=== PATIENT | female | born 1975 | race Hispanic/Latino ===

== ENCOUNTER 2021-02-02 10:18 | Emergency (ER) | payer MEDICAID ==
[~2021-02-02] VITALS: Ht 157.5 cm; Wt 77.1 kg
[2021-02-02] VITALS (12 sets, daily range): BP systolic 106–177; BP diastolic 64–81
[2021-02-02] MEDS ORDERED: TETANUS/DIPHTHERIA TOXOID [ADULT] 0.5 ML VIAL IM ONE ×3 (10:19→16:39)
[2021-02-02 10:50] LABS: BASOPHILS % (AUTO) 0.6 % (0.0-5.0); EOSINOPHILS % (AUTO) 3.5 % (0.0-8.0); HEMATOCRIT 43.6 % (36-48); LYMPHOCYTES % (AUTO) 40.5 % (21.0-51.0); MEAN CORPUSCULAR HEMOGLOBIN 30.9 pg (27.0-33.0); MEAN CORPUSCULAR HGB CONC 33.5 g/dL (32.0-36.0); MEAN CORPUSCULAR VOLUME 92.2 fL (79-99); MONOCYTES % (AUTO) 9.6 % (3.0-13.0); NEUTROPHILS % (AUTO) 45.6 % (40.0-77.0); PLATELET COUNT (AUTO) 268 K/uL (130-400); RED BLOOD CELL COUNT(AUTO) 4.73 MIL/uL (4.00-5.50); RED CELL DISTRIBUTION WIDTH 12.2 % (11.0-15.5); WHITE BLOOD COUNT (AUTO) 9.3 K/uL (4.8-10.8)
[2021-02-02] MEDS ORDERED: MORPHINE 4 MG SYG IVP SCH (11:00)
[2021-02-02 11:20] LABS: CARBON DIOXIDE 26 mmol/L (21-32); CHLORIDE 98 mmol/L (101-111); CREATININE 0.8 mg/dL (0.5-1.5); GLOMERULAR FILTR. RATE CALC 83 mL/min (>60); GLUCOSE,RANDOM 103 mg/dL (70-105); POTASSIUM 3.8 mmol/L (3.5-5.1); SODIUM SERUM 136 mmol/L (136-145); UREA NITROGEN, BLOOD 7 mg/dL (7-18)
[2021-02-02] MEDS ORDERED: IOHEXOL 350 MG/ML 100ML INFUS..BTL IV ONE (11:28)
[2021-02-02 11:29] LABS: INR 0.98 (0.85-1.15); PROTHROMBIN TIME 10.7 SEC (9.6-11.6)
[2021-02-02 11:31] LABS: ALANINE AMINOTRANSFERASE 28 U/L (12-78); ALBUMIN 3.6 g/dL (3.5-5.0); ASPARTATE AMINOTRANSFERASE 30 U/L (10-37); BILIRUBIN,TOTAL 0.2 mg/dL (0.2-1.0); CREATINE KINASE, TOTAL 67 U/L (21-232); HCG,QUANTITATIVE 1 mIU/mL (0-5); LIPASE 152 U/L (114-286); MYOGLOBIN 29 ng/mL (10-92); PARTIAL THROMBOPLASTIN TIME 27.3 SEC (26.3-35.5); TOTAL PROTEIN, SERUM 7.7 g/dL (6.0-8.3); TROPONIN I < 0.04 ng/mL (0.00-0.06)
[2021-02-02 11:34] LABS: ALCOHOL, BLOOD 266 mg/dL (0-10)
[2021-02-02] MEDS ORDERED: 0.9%NACL 100ML 100 ML ONE (11:45)
[2021-02-02 11:54] LABS: APPEARANCE,URINE Clear (CLEAR); BILIRUBIN,URINE Negative (NEGATIVE); COLOR,URINE Yellow (YELLOW); GLUCOSE, URINE (UA) Negative (NEGATIVE); KETONES,URINE Negative (NEGATIVE); LEUKOCYTE ESTERASE ,URINE Trace (NEGATIVE); NITRATE,URINE Negative (NEGATIVE); OCCULT BLOOD,URINE Negative (NEGATIVE); PH,URINE 5.5 (5.0-8.0); PROTEIN,URINE Negative (NEGATIVE); UROBILINOGEN,URINE 0.2 mg/dL (0.2-1.0)
[2021-02-02 12:02] LABS: AMPHET/METH SCREEN,URINE NEGATIVE (NEGATIVE); BARBITURATE SCREEN, URINE NEGATIVE (NEGATIVE); BENZODIAZEPINES SCREEN,URINE NEGATIVE (NEGATIVE); CANNABINOID SCREEN,URINE NEGATIVE (NEGATIVE); COCAINE SCREEN,URINE NEGATIVE (NEGATIVE); OPIATE SCREEN,URINE NEGATIVE (NEGATIVE); PHENCYCLIDINE SCREEN,URINE NEGATIVE (NEGATIVE)
[2021-02-02 12:08] LABS: BACTERIA,URINE Few /HPF (None Seen)
[2021-02-02 12:09] LABS: RBC,URINE None Seen /HPF (0-1)
[2021-02-02] MEDS: CEFAZOLIN SODIUM 1 GM VIAL IVP SCH ×2 (12:56→17:59)
[2021-02-02] MEDS ORDERED: KETOROLAC 30MG VIAL (30MG/ML) IV ONE (17:30)
[2021-02-02] MEDS ORDERED: IBUP-2070 PO (17:57)
[2021-02-02] MEDS ORDERED: CEPH500B PO (17:57)
== END 2021-02-02 20:20 | disposition home or self-care (01) ==
LOC: EDH 10:18 → EEVIPCON 10:18 → EDH 20:20
DX: S71.131A Puncture wound without foreign body, right thigh, initial encounter (principal); F10.129 Alcohol abuse with intoxication, unspecified; W34.00XA Accidental discharge from unspecified firearms or gun, initial encounter; Y93.89 Activity, other specified; Y92.89 Other specified places as the place of occurrence of the external cause; Y99.8 Other external cause status
CPT/HCPCS: 36415; 71270; 72170; 73552; 74178; 80053; 80305; 81001; 82550; 83690; 83874; 84484; 84702; 85025; 85610; 85730; 86850; 86900; 86901; 90471; 90714; 93005; 96374; 96375; 99285; J0690; J1885; Q9967

== ENCOUNTER 2025-02-19 22:42 | Emergency (ER) | payer SELFPAY ==
[~2025-02-19] VITALS: Ht 157.5 cm; Wt 65.8 kg
[~2025-02-19 22:42] MED LIST: CEPH500B PO; IBUP-1492 PO
[2025-02-19 22:43] VITALS: BP 156/88; PULSE 115; RESP 20; TEMP 98.5
--- NOTE | 2025-02-19 22:45 | NUR ---
UA CUP PROVIDED
--- NOTE | 2025-02-19 22:48 | NUR ---
SITTING ALONG WINDOWS WITH FAMILY. INTERACTING WELL. GOOD CHEST RISE AND FALL
--- NOTE | 2025-02-19 22:52 | NUR ---
UA COLLECTED AND SENT
[2025-02-19 23:00] LABS: APPEARANCE,URINE CLEAR (CLEAR); GLUCOSE, URINE (UA) NEGATIVE (NEGATIVE); LEUKOCYTE ESTERASE ,URINE NEGATIVE Leu/uL (NEGATIVE); NITRATE,URINE NEGATIVE (NEGATIVE); OCCULT BLOOD,URINE NEGATIVE (NEGATIVE)
[2025-02-19 23:01] LABS: ADD UA MICROSCOPIC NO; HCG,QUALITATIVE URINE NEGATIVE (NEGATIVE)
[2025-02-19 23:08] LABS: AMPHET/METH SCREEN,URINE NEGATIVE (NEGATIVE); BARBITURATE SCREEN, URINE NEGATIVE (NEGATIVE); CANNABINOID SCREEN,URINE NEGATIVE (NEGATIVE); COCAINE SCREEN,URINE NEGATIVE (NEGATIVE)
--- NOTE | 2025-02-19 23:53 | HMCIMG ---
EXAM: CR Chest, 1 View. CLINICAL HISTORY: CHEST PAIN COMPARISON: None provided. FINDINGS: LUNGS: The lungs show no infiltrate or other acute finding. PLEURAL SPACES: No evidence of pleural effusion or pneumothorax. MEDIASTINUM: The cardiomediastinal silhouette is within normal limits. BONES: No aggressive appearing osseous lesion seen. IMPRESSION: No acute cardiopulmonary pathology is evident. /[place]
[2025-02-20 00:28] LABS: IMMATURE GRANULOCYTE ABSOLUTE 0.02 K/uL (0-1); NUCLEATED RED BLOOD CELLS 0.0 % (0.0-0.19); PLATELET COUNT (AUTO) 163 K/uL (130-400); RED BLOOD CELL COUNT(AUTO) 4.39 MIL/uL (4.00-5.50); RED CELL DISTRIBUTION WIDTH 13.2 % (11.0-15.5); WHITE BLOOD COUNT (AUTO) 7.2 K/uL (4.8-10.8)
[2025-02-20 00:35] LABS: CREATININE 0.6 mg/dL (0.5-1.0); GLOMERULAR FILTR. RATE CALC 111.0 mL/min (>90); GLUCOSE,RANDOM 101.0 mg/dL (70-105); SODIUM SERUM 138.0 mmol/L (136-145); UREA NITROGEN, BLOOD 5.0 mg/dL (7-18)
[2025-02-20 00:41] LABS: ALCOHOL, BLOOD 335.0 mg/dL (0-10); CREATINE KINASE, TOTAL 52.0 U/L (21-232)
--- NOTE | 2025-02-20 00:47 | NUR ---
PT CALLED. NO ANSWER
--- NOTE | 2025-02-20 01:12 | NUR ---
PT CALLED, NO ANSWER
--- NOTE | 2025-02-20 01:41 | NUR ---
PT CALLED, NO ANSWER, NOT IN LOBBY, NO COMMUNICATION WITH STAFF ON DESIRE TO LEAVE
--- NOTE | 2025-02-20 06:02 | EKG ---
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
== END 2025-02-20 00:47 | disposition left against medical advice (07) ==
LOC: EDH 22:42
DX: R07.89 Other chest pain (principal); Z53.21 Procedure and treatment not carried out due to patient leaving prior to being seen by health care provider
CPT/HCPCS: 36415; 71045; 80048; 80305; 81003; 81025; 82550; 84484; 85025; 93005; 99285